=== PATIENT | female | born 1990 | race Caucasian/White ===

== ENCOUNTER 2016-04-28 09:54 | Emergency (ER) | payer MEDICAID ==
[2016-04-28 10:00] VITALS: RESP 18
[2016-04-28] MEDS ORDERED: IBUPROFEN 600 MG TAB PO ONE (10:43)
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
[2016-04-28 11:14] VITALS: BP 113/65; PULSE 75; TEMP 97.7; O2SAT 97
== END 2016-04-28 11:29 | disposition home or self-care (01) ==
DX: S99.922A Unspecified injury of left foot, initial encounter (principal); F17.200 Nicotine dependence, unspecified, uncomplicated; W22.8XXA Striking against or struck by other objects, initial encounter
CPT/HCPCS: L3260

== ENCOUNTER 2016-06-11 17:35 | Emergency (ER) | payer MEDICAID ==
--- NOTE | 2016-06-11 17:59 | EDPHY ---
H & P Stated Complaint: Generalized body aches/flu like sxs Time Seen by Provider: 06/11/16 17:58 - Personal History LMP (Females 10-55): Extended Cycle BCP/Inj Current Tetanus Diphtheria and Acellular Pertussis (TDAP): Yes - Medical/Surgical History Hx Asthma: No Hx Chronic Respiratory Disease: No Hx Diabetes: No Hx Cardiac Disease: No Hx Renal Disease: No Hx Cirrhosis: No Hx Alcoholism: Yes Hx HIV/AIDS: No Hx Splenectomy or Spleen Trauma: No Other PMH: bipolor,ptsd, reactive attachment disorder - not taking any meds now , chronic iv drug use, Hep C - Social History Smoking Status: Current every day smoker Constitutional: Initial Vital Signs Temperature (C) 36.7 C 06/11/16 17:40 Heart Rate 116 H 06/11/16 17:40 Respiratory Rate 20 06/11/16 17:40 Blood Pressure 116/75 06/11/16 17:40 O2 Sat (%) 98 06/11/16 17:40 O2 Delivery Mode Room Air Allergies/Adverse Reactions: Sulfa (Sulfonamide Antibiotics) Allergy (Unknown, Verified 06/11/16 17:39) Home Medications: Medication Instructions Recorded Abilify 04/14/15 Celexa 04/14/15 INTUNIV 01/20/16 AZITHROMYCIN [Z-PACK] 250 mg PO DAILY #1 packet 06/11/16 Hydrocodone/APAP 5/325 [[place] 1 - 2 each PO Q4-6PRN PRN #20 tab 06/11/16 5/325] Medical Decision Making ED Course/Re-evaluation: CHIEF COMPLAINT: HISTORY OF PRESENT ILLNESS: The patient is a 25-year-old female who presents with sore throat, fever, myalgia, cough, and chills this morning. She was diagnosed with pneumonia a few weeks ago and it is unclear if she ever got better. No other complaints at this time. REVIEW OF SYSTEMS: A 10 point review of systems was performed and is negative with the exception of the elements mentioned in the history of present illness. PHYSICAL EXAM: HR, BP, O2 Sat, RR. Temp noted General Appearance: Alert, writhing in bed. Head: Atraumatic without scalp tenderness or obvious injury Eyes: Pupils equal, round, reactive to light and accommodation, EOMI, no trauma , no injection. Ears: Clear bilaterally, no perforation, normal landmarks Nose: Atraumatic, no rhinorrhea, clear. Throat: There is no erythema or exudates, no lesions, normal tonsils, mucus membranes moist. Neck: Supple, 2+ carotid upstroke, nontender, no lymphadenopathy. Respiratory: No retractions, no distress, no wheezes, and no accessory muscle use. Lungs are clear to auscultation bilaterally. Cardiovascular: Regular rate and rhythm, no murmurs, rubs, or gallops. Bilateral carotid, radial, dorsalis pedis, and posterior tibial pulses intact. Good capillary refill all extremities. Gastrointestinal: Abdomen is soft, nontender, non-distended, no masses, no rebound, no guarding, no peritoneal signs. Musculoskeletal: Normal active ROM of all extremities, atraumatic. Neurological: Alert, appropriate, and interactive. The patient has normal DTRs and non-focal cranial nerves, motor, sensory, and cerebellar exam. Skin: No rashes, good turgor, no nodules on palpation. Past medical history: Bipolar disorder, PTSD, reactive attachment disorder, hep c. Past surgical history:Denies. Family history:Non-contributory. Social history:Homeless. DIAGNOSTICS/PROCEDURES/CRITICAL CARE TIME: Study: PA and Lateral Chest X-ray Indication: Cough, fever. Results: I viewed the images myself on the PACS system. The radiologist interpretation is: Chronic or recurrent mild airways disease. No pneumonia. DIFFERENTIAL DIAGNOSIS: The differential diagnosis for the patient's fever included but was not limited to pneumonia, urinary tract infection, viral syndrome, meningitis, and sepsis. MEDICAL DECISION MAKIN-year-old homeless female presents with cough, fever, myalgia, chills since this morning. She was recently diagnosed with pneumonia a few weeks ago. An IV was established and labs ordered. Chest x-ray will be obtained. 30mg IV Toradol for abdominal pain. 1846: X-ray per radiology shows no pneumonia, only recurrent airways disease. I discussed this with the patient at this time. She is comfortable being discharged. - Data Points Laboratory Results: Laboratory Results 06/11/16 18:20 06/11/16 06/11/16 06/11/16 18:20 18:20 18:20 WBC 9.71 10^3/uL H 10^3/uL (3.80-9.50) RBC 5.10 10^6/uL 10^6/uL (4.18-5.33) Hgb 14.4 g/dL g/dL (12.6-16.3) Hct 41.6 % % (38.0-47.0) MCV 81.6 fL fL (81.5-99.8) MCH 28.2 pg pg (27.9-34.1) MCHC 34.6 g/dL g/dL (32.4-36.7) RDW 13.8 % % (11.5-15.2) Plt Count 310 10^3/uL 10^3/uL (150-400) MPV 10.3 fL fL (8.7-11.7) Neut % (Auto) 57.2 % % (39.3-74.2) Lymph % (Auto) 30.8 % % (15.0-45.0) Borden % (Auto) 10.7 % % (4.5-13.0) Eos % (Auto) 0.6 % % (0.6-7.6) Baso % (Auto) 0.5 % % (0.3-1.7) Nucleat RBC Rel Count 0.0 % % (0.0-0.2) Absolute Neuts (auto) 5.55 10^3/uL 10^3/uL (1.70-6.50) Absolute Lymphs (auto) 2.99 10^3/uL 10^3/uL (1.00-3.00) Absolute Monos (auto) 1.04 10^3/uL H 10^3/uL (0.30-0.80) Absolute Eos (auto) 0.06 10^3/uL 10^3/uL (0.03-0.40) Absolute Basos (auto) 0.05 10^3/uL 10^3/uL (0.02-0.10) Absolute Nucleated RBC 0.00 10^3/uL 10^3/uL (0-0.01) Immature Gran % 0.2 % % (0.0-1.1) Immature Gran # 0.02 10^3/uL 10^3/uL (0.00-0.10) PT 13.9 SEC SEC (12.0-15.0) INR 1.08 (0.83-1.16) APTT 29.6 SEC SEC (23.0-38.0) VBG Lactic Acid Sodium Pending Potassium Pending Chloride Pending Carbon Dioxide Pending Anion Gap Pending BUN Pending Creatinine Pending Estimated GFR Pending Glucose Pending Calcium Pending Total Bilirubin Pending 06/11/16 18:20 WBC RBC Hgb Hct MCV MCH MCHC RDW Plt Count MPV Neut % (Auto) Lymph % (Auto) Borden % (Auto) Eos % (Auto) Baso % (Auto) Nucleat RBC Rel Count Absolute Neuts (auto) Absolute Lymphs (auto) Absolute Monos (auto) Absolute Eos (auto) Absolute Basos (auto) Absolute Nucleated RBC Immature Gran % Immature Gran # PT INR APTT VBG Lactic Acid 1.0 mmol/L mmol/L (0.7-2.1) Sodium Potassium Chloride Carbon Dioxide Anion Gap BUN Creatinine Estimated GFR Glucose Calcium Total Bilirubin Medications Given: Discontinued Medications Ketorolac Tromethamine (Toradol) 30 mg IVP EDNOW ONE Stop: 06/11/16 18:04 Last Admin: 06/11/16 18:32 Dose: 30 mg Departure - Departure Disposition: Home, Routine, Self-Care Clinical Impression: Bronchitis Condition: Good Instructions: Acute Bronchitis (ED) Additional Instructions: Drink plenty of fluids and be sure to get rest. Take Azithromycin as prescribed. Follow up with [facility] if symptoms do not improve over the next 3-4 days. Return to the emergency department if you experience any serious worsening of condition. Referrals: [facility],. [Clinic] - As per Instructions Prescriptions: AZITHROMYCIN [Z-PACK] 250 mg PO DAILY #1 packet Hydrocodone/APAP 5/325 [[place] 5/325] 1 - 2 each PO Q4-6PRN PRN #20 tab PRN Reason: Pain, Moderate
[2016-06-11] MEDS ORDERED: KETOROLAC 30 MG/1 ML SDV IVP ONE (18:03)
[2016-06-11 18:30] LABS: % IMMATURE GRANULYOCYTES 0.2 % (0.0-1.1); ABSOLUTE IMMATURE GRANULOCYTES 0.02 10^3/uL (0.00-0.10); ADD DIFF? NO; ADD MORPH? NO; ADD SCAN? NO; ATYPICAL LYMPHOCYTE FLAG 40 (0-99); FRAGMENT RBC FLAG 0 (0-99); HEMATOCRIT 41.6 % (38.0-47.0); HEMOGLOBIN 14.4 g/dL (12.6-16.3); LEFT SHIFT FLG 0 (0-99); LIPEMIA HEMOLYSIS FLAG 90 (0-99); MEAN CELL HEMOGLOBIN 28.2 pg (27.9-34.1); MEAN CELL HEMOGLOBIN CONCENTR. 34.6 g/dL (32.4-36.7); MEAN CELL VOLUME 81.6 fL (81.5-99.8); MEAN PLATELET VOLUME 10.3 fL (8.7-11.7); PLATELET CLUMPS FLAG 0 (0-99); PLATELET COUNT 310 10^3/uL (150-400); RED CELL DISTRIBUTION WIDTH 13.8 % (11.5-15.2)
[2016-06-11] MEDS ORDERED: NS 1,000 ML IV ONE (18:32)
[2016-06-11 18:40] LABS: APTT 29.6 SEC (23.0-38.0); INR 1.08 (0.83-1.16); PROTIME(PATIENT) 13.9 SEC (12.0-15.0)
[2016-06-11 18:50] LABS: ANION GAP 12 mEq/L (8-16); BILIRUBIN,TOTAL 0.6 mg/dL (0.1-1.4); CALCIUM 9.5 mg/dL (8.5-10.4); CARBON DIOXIDE 22 mEq/l (22-31); CHLORIDE 105 mEq/L (97-110); CREATININE 0.6 mg/dL (0.6-1.0); GLOMERULAR FILTRATION RATE > 60; GLUCOSE 100 mg/dL (70-100); SODIUM 139 mEq/L (134-144)
[2016-06-11 19:13] VITALS: BP 98/57; PULSE 91; RESP 18; TEMP 98.4; O2SAT 95
== END 2016-06-11 19:27 | disposition home or self-care (01) ==
DX: J20.9 Acute bronchitis, unspecified (principal); F17.200 Nicotine dependence, unspecified, uncomplicated
CPT/HCPCS: 96374; J1885

== ENCOUNTER 2017-01-18 17:49 | Emergency (ER) | payer MEDICAID ==
[2017-01-18 18:01] VITALS: BP 124/86; RESP 18; TEMP 99.1
--- NOTE | 2017-01-18 18:03 | EDPHY ---
H & P Stated Complaint: ST and fever started last night with congestion and cough Time Seen by Provider: 01/18/17 17:58 HPI/ROS: CHIEF COMPLAINT: A sore throat HISTORY OF PRESENT ILLNESS: The patient is a 26-year-old female who states that she is a carrier for strep throat. She has woke up this morning with a sore throat runny nose and lymphadenopathy. No cough. No shortness of breath. No fever. She states that this is similar to previous strep throat episodes. Her mom is a nurse in told her she does not think it is strep throat. No nausea vomiting. No GI symptoms. No abdominal symptoms. REVIEW OF SYSTEMS: Constitutional: denies: chills, fever, recent illness, recent injury EENTM: See above Respiratory: denies: cough, shortness of breath Cardiac: denies: chest pain, irregular heart rate, lightheadedness, palpitations Gastrointestinal/Abdominal: denies: abdominal pain, diarrhea, nausea, vomiting, blood streaked stools Genitourinary: denies: dysuria, frequency, hematuria, pain Musculoskeletal: denies: joint pain, muscle pain Skin: denies: lesions, rash, jaundice, bruising Neurological: denies: headache, numbness, paresthesia, tingling, dizziness, weakness Hematologic/Lymphatic: denies: blood clots, easy bleeding, easy bruising Immunologic/allergic: denies: HIV/AIDS, transplant EXAM: GENERAL: Well-appearing, well-nourished and in no acute distress. HEAD: Atraumatic, normocephalic. EYES: Pupils equal round and reactive to light, extraocular movements intact, sclera anicteric, conjunctiva are normal. ENT: TMs with fusions, congestive nares, erythematous pharynx with tonsillar swelling, no exudate . Moist mucous membranes. NECK: Normal range of motion, supple without lymphadenopathy or JVD. LUNGS: Breath sounds clear to auscultation bilaterally and equal. No wheezes rales or rhonchi. HEART: Regular rate and rhythm without murmurs, rubs or gallops. ABDOMEN: Soft, nontender, normoactive bowel sounds. No guarding, no rebound. No masses appreciated. BACK: No CVA tenderness, no spinal tenderness, step-offs or deformities EXTREMITIES: Normal range of motion, no pitting or edema. No clubbing or cyanosis. NEUROLOGICAL: Cranial nerves II through XII grossly intact. Normal speech, normal gait. 5/5 strength, normal movement in all extremities, normal sensation PSYCH: Normal mood, normal affect. SKIN: Warm, dry, normal turgor, no visible rashes or lesions. Source: Patient Exam Limitations: No limitations - Medical/Surgical History Hx Asthma: No Hx Chronic Respiratory Disease: No Hx Diabetes: No Hx Cardiac Disease: No Hx Renal Disease: No Hx Cirrhosis: No Hx Alcoholism: Yes Hx HIV/AIDS: No Hx Splenectomy or Spleen Trauma: No Other PMH: bipolor, ptsd, reactive attachment disorder, chronic iv drug use, Hep C - Family History Significant Family History: No pertinent family hx - Social History Smoking Status: Former smoker Alcohol Use: Sober Drug Use: None Constitutional: Initial Vital Signs Temperature (C) 37.3 C 01/18/17 17:58 Heart Rate 114 H 01/18/17 17:58 Respiratory Rate 18 01/18/17 17:58 Blood Pressure 124/86 H 01/18/17 17:58 O2 Sat (%) 94 01/18/17 17:58 O2 Delivery Mode Room Air Allergies/Adverse Reactions: Sulfa (Sulfonamide Antibiotics) Allergy (Unknown, Verified 01/18/17 17:57) Home Medications: Medication Instructions Recorded Celexa 04/14/15 INTUNIV 01/20/16 Medical Decision Making ED Course/Re-evaluation: 6:20 p.m. the patient is doing well. Her rapid strep is negative. We will treat this as a viral pharyngitis and will call her tomorrow for PCR is positive. I recommended antipyretics and hydration. The patient is tolerating p. o.. Her heart rate is improved. Differential Diagnosis: Partial list of the Differential diagnosis considered include but were not limited to; strep throat, viral pharyngitis, upper respiratory tract infection and although unlikely based on the history and physical exam, I also considered pneumonia, sepsis, meningitis. I discussed these differential diagnoses and the plan with the patient as well as the usual and expected course. The patient understands that the diagnosis is provisional and that in medicine we are not always correct and that further workup is often warranted. Usual and customary warnings were given. All of the patient's questions were answered. The patient was instructed to return to the emergency department should the symptoms at all worsen or return, otherwise to followup with the physician as we discussed. - Data Points Laboratory Results: 01/18/17 01/18/17 Unknown 18:00 Group A Strep Screen NEGATIVE (NEGATIVE) Group A Strep DNA Pending Medications Given: Discontinued Medications Ibuprofen (Motrin) 800 mg PO EDNOW ONE Stop: 01/18/17 18:06 Last Admin: 01/18/17 18:07 Dose: 800 mg Departure - Departure Disposition: Home, Routine, Self-Care Clinical Impression: Upper respiratory tract infection Qualifiers: URI type: unspecified URI Qualified Code(s): J06.9 - Acute upper respiratory infection, unspecified Acute pharyngitis Qualifiers: Pharyngitis/tonsillitis etiology: unspecified etiology Qualified Code(s): J02.9 - Acute pharyngitis, unspecified Condition: Fair Instructions: Pharyngitis (ED), Upper Respiratory Infection (ED) Referrals: NONE *PRIMARY CARE P,. [Primary Care Provider] - As per Instructions [facility],. [Clinic] - As per Instructions
[2017-01-18] MEDS ORDERED: IBUPROFEN 800 MG TAB PO ONE (18:05)
[2017-01-18 18:43] VITALS: PULSE 109; O2SAT 97
== END 2017-01-18 18:41 | disposition home or self-care (01) ==
LOC: CED 17:49
DX: J06.9 Acute upper respiratory infection, unspecified (principal); Z87.891 Personal history of nicotine dependence
CPT/HCPCS: 87880-PO

== ENCOUNTER 2017-12-07 20:56 | Emergency (ER) | payer MEDICAID ==
[2017-12-07 21:13] VITALS: BP 117/89
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
== END 2017-12-07 21:58 | disposition home or self-care (01) ==
DX: M25.571 Pain in right ankle and joints of right foot (principal); Y08.02XA Assault by strike by baseball bat, initial encounter; Y93.84 Activity, sleeping; Y99.8 Other external cause status; F17.200 Nicotine dependence, unspecified, uncomplicated
CPT/HCPCS: L4386

== ENCOUNTER 2017-12-26 21:13 | Inpatient (IN) | payer MEDICAID, OTHER ==
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
[2017-12-26 22:29] LABS: PLATELET COUNT 354 10^3/uL (150-400)
[2017-12-27] MEDS ORDERED: DULoxetine 30 MG CAP PO SCH (09:00)
--- NOTE | 2017-12-27 15:37 | ASMTTCLDSP ---
TLC Discharge Disposition Disposition: Answers: Transfer Disposition Notes: Notes: In consultation with [facility] ED physician, Domi Allen MD and on-call psychiatrist, Keith Fernandez MD, both concurred that pt appears to meet 27-65 criteria requiring psychiatric hospitalization as pt appears to be at risk of harm to self due to a mental illness condition. Was patient given the Answers: Yes Inpatient Behavioral Health Prohibited Belongings List while in the ED? For inpatient Keith Fernandez MD admission, the following psychiatrist agreed to accept patient for admission to Behavioral Health ([facility]): Type of Hold: Answers: M1/72-hour Hold Hold initiated by: Answers: Police Date Signed: 12/27/2017 03:32 PM Electronically Signed By:Bayron Frankel
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
--- NOTE | 2017-12-27 16:59 | GCON ---
DATE OF CONSULTATION: 12/27/2017 REASON FOR CONSULTATION: I was asked by Dr. Fernandez to see this patient in regard to her medical pro blems. HISTORY OF PRESENT ILLNESS: This is a 27-year-old female, who presented to the emergency department yesterday with suicidal ideation. She has a history of bipolar as well as PTSD and suicide attempts in the past. She had planned to jump off a bridge. She has had long-term problems with IV drug use. Recently relapsed on methamphetamines 4 days prior to presentation. She has not used for the last 3 days however. She did use these intravenously. She denies any pain at the injection sites. She d oes have a history of hepatitis C which she said cleared on its own and she did not need treatment fo r. Otherwise, she is currently denying any headache, nausea, vomiting, chest pain, shortness of luisa th, rash on her skin and dysuria. PAST MEDICAL/SURGICAL HISTORY: 1. Bipolar disorder. 2. PTSD. 3. Reactive attachment disorder. 4. IV drug use. 5. Hepatitis C exposure. MEDICATIONS: Please see medication reconciliation. ALLERGIES: Sulfa drugs. FAMILY HISTORY: Reviewed and noncontributory. SOCIAL HISTORY: She does smoke, she does not drink and uses IV drugs as above. REVIEW OF SYSTEMS: A 10-point review of systems is conducted and is negative except per HPI. PHYSICAL EXAM: VITAL SIGNS: Blood pressure is 100/65, heart rate 78, respiration rate 15, saturatin g 98% on room air. Temperature 36.4. GENERAL: This is a pleasant female, appears somewhat anxious lying in bed. HEENT showed normocephalic atraumatic. CARDIOVASCULAR: Exam shows a regular rate and r hythm. There are no murmurs, rubs, or gallops. PULMONARY: Shows her to be breathing comfortably. She is clear to auscultation bilaterally. ABDOMEN: Soft, nontender, nondistended. SKIN: Shows no rash. exam shows no Shirley. NEUROLOGIC: Exam shows her to be alert and oriented x3. She is movin g all extremities. PSYCHIATRIC: Shows her to be mildly anxious. LAB DATA: White count is 13.49, basic metabolic panel is normal. Urinalysis is negative. Tox scree n is not negative for amphetamines and marijuana. Alcohol level negative. Data: Reviewed her chart including emergency department note. IMPRESSION AND PLAN: 1. Leukocytosis: Suspect this is stress reaction. Does not represent infection. She has no other signs or symptoms of this. I do not think this needs to be rechecked anytime soon. 2. Recent IV amphetamine use: Currently no signs or symptoms of infection related to this. If anyt polly becomes concerning, please let Hospital Medicine know. 3. Reported exposure to hepatitis C: We do not have a full set of hepatitis labs in our system. He r last HIV was in 2012. Would consider rechecking these either as an inpatient or outpatient. Thank you for involving Hospital Medicine in the care of this patient. We will sign off for now. Pl ease re-consult if there are any additional needs. /[id number]/MODL
[2017-12-27] MEDS ORDERED: LORazepam 0.5 MG TAB PO PRN (20:23)
[2017-12-27] MEDS ORDERED: NICOTINE POLACRILEX 2 MG GUM B PRN (20:23)
[2017-12-27] MEDS ORDERED: MAGNESIUM HYDROXIDE 30 ML UDCUP PO PRN (20:23)
[2017-12-27] MEDS ORDERED: MAG HYDROX/AL HYDROX/SIMETH 30 ML UDCUP PO PRN (20:23)
[2017-12-27] MEDS ORDERED: OLANZapine DISINTEGR 10 MG TAB PO PRN (20:23)
[2017-12-27] MEDS ORDERED: MELATONIN 3 MG TAB PO PRN (20:27)
[2017-12-27] MEDS ORDERED: LURASIDONE HCL 80 MG TAB PO SCH (20:30)
[2017-12-27] MEDS: LURASIDONE HCL 40 MG TAB PO SCH (20:57)
[2017-12-27] MEDS: ACETAMINOPHEN 325 MG TAB PO PRN (21:01)
[2017-12-27] MEDS ORDERED: LURASIDONE HCL 20 MG TAB PO ONE (21:53)
[2017-12-28] MEDS: DULoxetine 30 MG CAP PO SCH (09:32)
--- NOTE | 2017-12-28 13:31 | ASMTBHMTP ---
Master Treatment Plan Master Treatment Plan Answers: Depressed Mood with for: Suicidal Ideation Date: 12/28/2017 Diagnosis on Admission: Bipolar Expected length of stay: 3-5 Days Reason for admission: Notes: Per TLC Evaluation - Pt. is a 27 year old single, female who presented to the [facility] ED with complaints of worsening depression and suicidal ideation since the recent of her father. Pt. has a history of chronic depression and has been on a variety of medications including Latuda and Klonopin. Pt. is an open client with [facility]. Pt's relationship with her father was reported to be very suppottive so pt had stated losing her father had been especially significant. Pt. described a poor relationship with her mother. Pt. had stated her current suicide plan was to jump off a bridge. Pt. stated she has been compliant with taking her medications. Per M1 hold written by sustainability officer: Police responded to a female having suicidal thoughts reported by Dr. Howe at [facility], possibly meth. Nayeli waited for officers outside the tables at a [employer] restaurant. sustainability officer spoke with Nayeli who stated that she was having suicidal thoughts tonight, thinking about jumping in front of a train or off a bridge. Nayeli stated that she just found of that her father and was having guilt about their last conversation Nayeli had said she was suicidal for the past month and that she had just started taking a new medication prescribed for mental health issues. Nayeli had asked to be placed on a mental health hold and taken to a psych hospital. Patient's stated presenting problems: Notes: Dad's three days ago. Patient's goals for treatment: Notes: Not sure Patient's strengths: Notes: Playing with my dog and horseback riding. Identify supports outside of hospital: Notes: Not really Discharge criteria: Notes: Suicidal ideation will resolve and patient will have a plan to safely manage recurrent suicidal ideation. Initial disposition plan/considerations: Notes: Don't have a place to go Master Treatment Plan Required Signatures Psychiatrist signature: Answers: Nik James MD: RN on-shift signature: Answers: RN: Patient signature: Answers: Patient: Date Signed: 12/28/2017 01:30 PM Electronically Signed By:Jackie Mazariegos
[2017-12-28] MEDS ORDERED: PNEUMOCOCCAL 0.5ML VACCINE VIAL IM ONE (14:07)
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
[2017-12-28] MEDS: LURASIDONE HCL 40 MG TAB PO SCH (17:21)
[2017-12-29] MEDS: DULoxetine 30 MG CAP PO SCH (08:21)
[2017-12-29] MEDS: ACETAMINOPHEN 325 MG TAB PO PRN (11:37)
--- NOTE | 2017-12-29 16:10 | SOAPPROG ---
SOAP Progress Note Assessment/Plan: Assessment: 27 yo woman with h/o depression, anxiety, trauma and polysubstance dependence. She has been using IV meth daily and is homeless. Plan: 12/29/17 16:05 1. Patient says she doesn't think her meds are "working" b/c she feels irritable and emotionally labile. MD tried to explain that the most likely explanation for her mood lability is methamphetamine w/d, but patient thinks she needs "new meds." 2. Patient still grieving of her FOC. 3. Patient wants help finding housing and social welfare clerk. CC referred patient to [facility] for Homeless. 4. Patient would like to go to [facility] for substance abuse treatment b/c it' s the only residential program that takes Medicaid, but there is a > 3 mos wait. MD encouraged patient to consider other options for addiction tx and sober living in the more immediate timeframe. 5. Patient is willing to sign in voluntarily. Subjective: Patient told MD she had a "bad" morning b/c she got angry and yelled at staff when they asked her to change her shirt for more appropriate clothes. Staff report patient was yelling and cursing. She later apologized to staff. When MD saw patient she was calm and cooperative. Patient told MD that she thought she "needed new meds." However, MD pointed out that patient was able to take space, remove herself from stressful situation, take deep breaths, and return and apologize for her regretful behavior. This demonstrated to MD that patient was able to cope with her mood lability and return to her baseline calm, pleasant mood without any additional meds. Objective: Vital Signs Temp Pulse Resp BP Pulse Ox 36.8 C 68 16 102/52 L 95 12/29/17 06:00 12/29/17 06:00 12/29/17 06:00 12/29/17 06:00 12/29/17 06:00 MSE: Affect: Calm, euthymic when MD saw her, irritable, labile, angry earlier in AM Mood: "Not good" earlier but "OK" now TP: Linear TC: Denies any SI/HI Insight/Judgment: Poor - Time Spent With Patient Time Spent With Patient: 15" - Pending Discharge Pending Discharge Within 24 Hours: No Pending Discharge Within 48 Hours: No ICD10 Worksheet Patient Problems: Problems Problem Status Onset Bipolar disorder Acute Suicidal ideation Acute
[2017-12-29] MEDS: LURASIDONE HCL 40 MG TAB PO SCH (17:43)
[2017-12-30] MEDS ORDERED: LURASIDONE HCL 40 MG TAB PO SCH (08:21)
[2017-12-30] MEDS: DULoxetine 30 MG CAP PO SCH (08:29)
--- NOTE | 2017-12-30 11:28 | SOAPPROG ---
SOAP Progress Note Assessment/Plan: Assessment: Bipolar I Disorder, Severe. Alcohol use disorder, severe. Cannabis use disorder, severe. No improvement noted. (see subjective/objective note). Patient is not safe to discharge at this time as patient continues to exhibit signs of deangelo, and express deangelo symptoms. Patient requires continued inpatient care because of current deangelo, and requires inpatient level of care to stabilize in order to no longer be gravely disabled due to mental illness. Patient could benefit from continued inpatient hospitalization for crisis stabilization, safety, and medication evaluation. Plan: (1) Psychotropic medications: After reviewing options, risks, and benefits patient agrees to continue current medications with following changes: Zyprexa Zydis 10 mg po QHS and [place] ER 600 mg BID. No other medication changes at this time as more time is needed to determine ongoing tolerability and efficacy. Plan is to continue to observe patient for response and side effects from medications, and ongoing monitoring and evaluation. (2) Review with patient informed consent and recommendations for psychotropic medication treatment listed below (3) Labs: lithium level AM prior to AM dose, A1c, fasting lipid panel (4) Therapy: continue milieu and group therapy (5) Further investigation including gathering information from patients relatives and review of past case records to inform treatment plan. (6) Safety/Wellness plan and follow-up outpatient appointments to be established prior to discharge. Next steps are for patient to meet with clinical care manager to plan a safe discharge plan and establish outpatient services for ongoing treatment. (7) Confer with inpatient treatment team regarding treatment plan. (8) Legal status: M1; to sign in voluntary when M1 expires (9) Consider discharge on Saturday if patient is in stable condition, safe, and has a safe discharge plan. (10) Substance abuse interventions: alcohol and cannabis PSYCHOTROPIC MEDICATION TREATMENT INFORMED CONSENT and RECOMMENDATIONS: Review nature of condition, diagnosis, and prognosis. Review nature and purpose of psychotropic medication treatment. Review type of psychotropic medications being ordered. Review risk and benefits of psychotropic medication treatment. Review probable length of time patient will need to take medications. Review risk and benefits of not undergoing psychotropic medication treatment. Review alternative treatments to psychotropic medications. Review psychotropic medications contraindications, drug-drug interactions, side effects, and importance of reporting any side effects to a psychiatric provider or nurse during inpatient hospitalization, and upon discharge to patients psychiatric outpatient provider, primary care provider, or other health live in caregiver. Review importance of asking a nurse, psychiatric provider, or primary care provider any questions or problems concerning the psychotropic medications. Verify patient understands the information that has been provided, and understands, accepts, and agrees to psychotropic medications. Review patients safety plan and importance of patient to report to staff while hospitalized if patient is ever a danger to self/others, or unable to care for self, and upon discharge, the importance for patient to contact [facility] or [facility], or go to the nearest emergency room, if patient is ever a danger to self/others, or unable to care for self. Recommend that upon discharge patient establish medication management treatment with a psychiatric provider, establishes routine therapy appointments, and follow-up with primary care provider. Verify patient understands and agrees to these recommendations. 12/30/17 11:29 Subjective: Following up with patient for evaluation of psychosis, mood, and safety. Patient reports, "I don't know, but think I need to change my medications. They are not working that well." Patient expresses the following psychiatric symptoms severe depression related to dad passing away 7 days ago. Patient reports taking medications as prescribed, and describes response to medications as poor. Patient does not report undesirable side effects from the medications , and agrees to continue current medications. Patient reports appetite as good , and reports eating all meals. Patient describes getting 1-2 hours of sleep. Patient reports using methamphetamine and cannabis daily prior to admission. Patient agrees to increase Latuda to 80 mg po QD and increase Cymbalta to 60 mg po QD. Objective: Vital Signs Temp Pulse Resp BP Pulse Ox 36.7 C 69 14 102/57 L 98 12/30/17 06:00 12/30/17 06:00 12/30/17 06:00 12/30/17 06:00 12/30/17 06:00 NURSING REPORT: Consulted with nursing for update on patients progress in treatment. Nurses report patient is engaged in treatment, is attending groups, slept 8 hours, expresses the following psychiatric symptoms: severe anxiety, exhibits the following psychiatric symptoms: irritable, anxious; is eating all meals, is agreeable to medications and taking as prescribed with no report of side effects, with no s/s of EPS/akathisia, and denies SI/HI, denies A/V hallucinations, and denies delusions. LINE COOK UPDATE: currently setting up OP services. MSE: The patient presents casually dressed and with good hygiene, and looks stated age. Patient is sitting, posture is upright, and position is relaxed. Patient appears tired, and responds appropriately and reasonably during interview. Patient is engaged, relates well to interviewer, and emotional facial expression is appropriate to situation and changes appropriately with topic. Patient is cooperative, makes comfortable eye contact, and movements are voluntary, deliberate, coordinated, and smooth and even with no inappropriate movements. Patient makes laryngeal sounds effortlessly and shares conversation appropriately; pace of conversation is appropriate, and stream of talking is fluent; articulation is clear and understandable; word choice is effortless and appropriate for education level; completes sentences, occasionally pausing to think; rate and volume are appropriate for interview and setting. Patient reports mood as depressed. Patients affect is flat and constricted, congruent with mood. Patient has linear and logical thinking, with no loose associations, tangential thought, thought blocking, concrete thinking, or any other signs of formal thought disorder. Patient denies suicidal and homicidal ideation, and denies hallucinations and delusions. Patient appears to be a poor historian with poor judgement and poor insight into current condition. Patient has no apparent dysfunction in recent or remote memory noted, and no evidence of gross cognitive dysfunction noted at any point during the interview. SUBSTANCE ABUSE BRIEF INTERVENTION: Brief intervention regarding the risks of methamphetamine and cannabis abuse is provided to patient with goal to reduce the risk of harm that could result from the continued use of methamphetamine and cannabis, with the general aim to investigate the problem, raise awareness of problem, develop a solution with the patient, recommend a specific change or activity, and motivate the patient toward change. Assess substance abuse behavior and give supportive advice about harm reduction, recommend a reduction in hazardous/at-risk consumption patterns, and facilitate referrals for additional specialized treatment with nurse wound care. Intermediate goal is for the patient to quit use and attend OP substance abuse treatment. Intervention focus on intermediate goals to allow for more immediate success in the treatment process to keep the patient motivated. Review following with patient: Cannabis use risks: Short-term use: impaired short-term memory, impaired motor coordination, altered judgement, in high doses paranoia and psychosis. Long-term use addiction, diminished life satisfaction and achievement, symptoms of chronic bronchitis, and increased risk of chronic psychosis disorders if predisposition to such disorders. In withdrawal anger, aggression irritability, anxiety and nervousness, decreased appetite or weight loss, restlessness, and sleep difficulties with strange dreams. Methamphetamine use risks: Short-term: insomnia, irritability, aggressive behavior, hallucinations, delusions, intellectual deficits, anxiety, depression , convulsions, damage to blood vessels in the brain causing strokes, high fevers , collapse of the circulatory system. Long-term: damage to nerve pathways, maybe irreversibly; overstimulation to dopamine impairing dopamine transport and reducing efficiency of dopamine receptors, the reward system becomes worn out, leading to inability to experience pleasure for years. - Time Spent With Patient Time Spent With Patient: 30 minutes, met with patient individually. - Pending Discharge Pending Discharge Within 24 Hours: Yes Pending Discharge Within 48 Hours: No Pending Discharge Date: 12/31/17 Pending Discharge Time: 11:00 ICD10 Worksheet Patient Problems: Problems Problem Status Onset Bipolar disorder Acute Suicidal ideation Acute
[2017-12-30] MEDS ORDERED: IBUPROFEN 200 MG TAB PO PRN (15:54)
--- NOTE | 2017-12-30 16:09 | ASMTBHDC ---
Notes Note: Notes: CC confirmed client's follow up plan (appts): Follow up with: [facility] [address] Next Appt: Jacquelin (Therapist) on SaturdayJanuary 08 (01/08/18) at 9am Next Med Appt: Dr. Kauffman (01/18/18) at 3:45pm At the above location Additional Resources: [address] [place] [address] [id number] [place] [address] Must coordinate entry prior to arriving with [facility] [address] [place] [address] Date Signed: 12/30/2017 04:09 PM Electronically Signed By:Jeff Marin
[2017-12-31 06:52] VITALS: BP 109/53
--- NOTE | 2017-12-31 08:00 | BDS ---
REASON FOR ADMISSION: From the ED note dated 12/26/2017, the patient presented to the ED complaining of worsening suicidal ideation surrounding the recent of her father. The patient reported a plan to hurt herself by jumping off a bridge. The patient presented to the ED requesting help for her suicidal ideation. The patient could not contract for safety. The patient was admitted involuntarily on an M1 hold due to being a danger to herself. The patient was admitted for safety, crisis stabilization, and medication management. ADMITTING DIAGNOSIS: Bipolar I disorder, severe, current episode depression; stimulant use disorder, severe, in a controlled environment; cannabis use disorder, severe, in a controlled environment. ADMISSION PHYSICAL EXAM: The patient was seen for an Internal Medicine consultation on 12/27/2017, for medical clearance for inpatient psychiatric hospitalization and treatment. The patient was medically cleared for inpatient psychiatric hospitalization and treatment. For further details, please see consultation note dated 12/27/2017. ADMISSION LABS: CBC from 12/26/2017, within normal limits except white blood cells were elevated at 13.49. Absolute neutrophils were elevated at 8.87 and absolute lymphocytes were elevated at 3.64. Chemistry from 12/26/2017, within normal limits except creatinine was low at 0.5. Hemoglobin A1c from 12/28/2017 , was 5.6. Liver function from 12/28/2017, within normal limits except total protein was elevated at 8.7. Fasting lipid panel from 12/28/2017, within normal limits except triglycerides were elevated at 221. Cholesterol was elevated at 219, LDL cholesterol calculated was elevated at 120, VLDL cholesterol was elevated at 44, and non-HDL cholesterol was elevated at 164. Urine test from 12/26/2017 was negative. Toxicology screen from 12/26, non-negative for amphetamines, non-negative for THC, negative for all other substances of abuse and negative for ethyl alcohol. MAJOR PROCEDURES OR TESTS: None. HOSPITAL COURSE: The most prominent symptoms and behaviors while the patient was here were severe anxiety and irritability, likely due to the patient's daily use of methamphetamine and cannabis prior to admission, and signs and symptoms of withdrawal from cannabis and methamphetamine use. The patient also reported feeling depressed. Treatment modalities utilized were milieu and group therapy. Latuda 60 mg p.o. daily at 1800 was titrated to 80 mg p.o. daily at 1800, was tolerated with no report of side effects and with good response. Cymbalta 30 mg p.o. daily was titrated to 60 mg p.o. daily, was tolerated with no report of side effects and with good response. Clonidine 0.1 mg p.o. at bedtime was continued, was tolerated with no report of side effects and with good response. The patient has improved considerably with no signs of psychiatric symptoms and no psychiatric symptoms expressed at discharge. The patient reports she has improved since admission and states to be in stable condition, feels safe to discharge and she contracts for safety. Patient's response to treatment was good. There were no adverse or unexpected results of treatment. The patient was safe throughout her stay, active in treatment, engaged in groups, and was appropriate with staff and other patients. The patient met with the treatment team prior to discharge to assess readiness to discharge and review discharge plan. The treatment team consensus is the patient is in stable condition, has a safe discharge plan, and is ready to discharge today. CONDITION ON DISCHARGE: Patient is in stable condition and is no longer a danger to self or others, and is not gravely disabled due to mental illness. Patient is no longer in need of inpatient level of care, and can be safely and effectively treated within the community. The patients level of risk at time of discharge is low. MSE: The patient is casually dressed and with good hygiene , and looks stated age. Patient is sitting, posture is upright, and position is relaxed. Patient appears awake, alert, and responds appropriately and reasonably during interview. Patient is engaged, relates well to interviewer, and emotional facial expression is appropriate to situation and changes appropriately with topic. Patient is cooperative, makes comfortable eye contact , and movements are voluntary, deliberate, coordinated, and smooth and even with no inappropriate movements. Patient makes laryngeal sounds effortlessly and shares conversation appropriately; pace of conversation is appropriate, and stream of talking is fluent; articulation is clear and understandable; word choice is effortless and appropriate for education level; completes sentences, occasionally pausing to think; rate and volume are appropriate for interview and setting. Patient reports mood as euthymic. Patients affect is stable with full variable range, congruent with mood, and appropriate to speech and circumstances. Patient has linear and logical thinking, with no loose associations, tangential thought, thought blocking, concrete thinking, or any other signs of formal thought disorder. Patient denies suicidal and homicidal ideation, and denies hallucinations and delusions. Patient appears to be a reliable historian with sound judgement and good insight into current condition. Patient has no apparent dysfunction in recent or remote memory noted , and no evidence of gross cognitive dysfunction noted at any point during the interview. DISCHARGE DIAGNOSIS: Bipolar I disorder, severe, current episode depression; stimulant use disorder, severe; cannabis use disorder, severe. CURRENT MEDICATIONS: After reviewing options, risks, and benefits, the patient agrees to continue Latuda 80 mg p.o. daily at 1800 with meal and Cymbalta 60 mg p.o. daily. The patient requests prescriptions for the following medications at the time of discharge: Latuda 80 mg and Cymbalta 60 mg. Prescriptions for 30 days are provided. Prescriptions are reviewed with the patient at time of discharge to ensure accuracy and patient understanding. DISPOSITION: The patient left hospital independently and voluntarily with her brother at time of discharge. FOLLOWUP: group rooms coordinator reports the appropriate outpatient follow-up services have been established and outpatient appointments have been scheduled. The patient received written instructions with times and dates of outpatient follow-up appointments. The following follow-up recommendations were provided to the patient at discharge: Continue psychotropic medications as prescribed and attend appointments as scheduled. Report any side effects to a psychiatric outpatient provider, a primary care provider, or other health career development consultant. Address any questions or problems concerning the psychotropic medications with a psychiatric outpatient provider, a primary care provider, or other health career development consultant. Contact [facility] or [facility], or go to the nearest emergency room, if you are ever a danger to yourself/others, or unable to care for yourself. As soon as possible, establish a routine medication management treatment with a psychiatric provider, establish routine therapy appointments, and follow-up with a primary care provider. SUBSTANCE ABUSE BRIEF INTERVENTION: Brief intervention regarding the risks of methamphetamine and cannabis abuse is provided to patient with goal to reduce the risk of harm that could result from the continued use of methamphetamine and cannabis, with the general aim to investigate the problem, raise awareness of problem, develop a solution with the patient, recommend a specific change or activity, and motivate the patient toward change. Assess substance abuse behavior and give supportive advice about harm reduction, recommend a reduction in hazardous/at-risk consumption patterns, and facilitate referrals for additional specialized treatment with long term care pharmacist. Intermediate goal is for the patient to quit use and attend OP substance abuse treatment. Intervention focus on intermediate goals to allow for more immediate success in the treatment process to keep the patient motivated. Review following with patient: Cannabis use risks: Short-term use: impaired short-term memory, impaired motor coordination, altered judgement, in high doses paranoia and psychosis. Long-term use addiction, diminished life satisfaction and achievement, symptoms of chronic bronchitis, and increased risk of chronic psychosis disorders if predisposition to such disorders. In withdrawal anger, aggression irritability, anxiety and nervousness, decreased appetite or weight loss, restlessness, and sleep difficulties with strange dreams. Methamphetamine use risks: Short-term: insomnia, irritability, aggressive behavior, hallucinations, delusions, intellectual deficits, anxiety, depression , convulsions, damage to blood vessels in the brain causing strokes, high fevers , collapse of the circulatory system. Long-term: damage to nerve pathways, maybe irreversibly; overstimulation to dopamine impairing dopamine transport and reducing efficiency of dopamine receptors, the reward system becomes worn out, leading to inability to experience pleasure for years. OUTPATIENT SUBSTANCE ABUSE TREATMENT: Patient referred to outpatient provider and treatment for continued treatment related to substance abuse. LEGAL COURSE: The patient was admitted on an M1 hold. The patient discharged today independently and voluntarily. ATTITUDE AT TIME OF DISCHARGE: The patients attitude was positive at time of discharge, and patient reports looking forward to discharging today. The patient reports she feels safe to discharge, is no longer a danger to herself or others, is in stable condition, and contracts for safety. Patient states she will continue medications as prescribed, and establish medication management treatment with an outpatient provider after discharge. Patient reports she understands the information that has been provided to her, and she understands, accepts, and agrees to psychotropic medications. Patient describes internal protective factors as the coping skills she has learned while hospitalized here, and she plans to continue to practice these coping skills after discharge. LABS AND STUDIES: There were no pending labs or studies at time of discharge. ADVANCED DIRECTIVES: There were no advance directives on file, and patient was a full code during this hospitalization. The following psychotropic medication treatment informed consent and recommendations were provided to the patient at time of discharge. Patient reports she understands, accepts, and agrees to the information that has been provided. PSYCHOTROPIC MEDICATION TREATMENT INFORMED CONSENT and RECOMMENDATIONS: Review nature of condition, diagnosis, and prognosis. Review nature and purpose of psychotropic medication treatment. Review type of psychotropic medications being prescribed. Review risk and benefits of psychotropic medication treatment. Review probable length of time will need to take medications. Review risk and benefits of not undergoing psychotropic medication treatment. Review alternative treatments to psychotropic medications. Review psychotropic medications contraindications, side effects, and importance of reporting any side effects to a psychiatric provider, primary care provider, or other health career development consultant. Review importance of her asking a psychiatric provider or primary care provider any questions or problems concerning the psychotropic medications. Review importance of reporting to a psychiatric provider, primary care provider, or other health career development consultant if she plans to or becomes . Review safety plan and the importance to contact [facility] or [facility] , or go to the nearest emergency room, if ever a danger to yourself/others, or unable to care for yourself. Recommend upon discharge to establish routine medication management treatment with a psychiatric provider, establish routine therapy appointments, and follow-up with a primary care provider. Verify patient understands, accepts, and agrees to the information that has been provided. /[id number]/MODL MTDD
[2017-12-31] MEDS: DULoxetine 30 MG CAP PO SCH (08:18)
== END 2017-12-31 12:45 | disposition home or self-care (01) | DRG 885 ==
LOC: BBEH 12-27 18:50
PROVIDERS: ADMIT Registered Nurse; ATTEND Registered Nurse
DX: F31.5 Bipolar disorder, current episode depressed, severe, with psychotic features (principal); F15.23 Other stimulant dependence with withdrawal; Z23 Encounter for immunization; Z59.0 Homelessness; F12.959 Cannabis use, unspecified with psychotic disorder, unspecified; F43.21 Adjustment disorder with depressed mood; F43.10 Post-traumatic stress disorder, unspecified
CPT/HCPCS: 80305; G0008; G0009; G0480

== ENCOUNTER 2018-01-17 06:10 | Emergency (ER) | payer MEDICAID ==
[2018-01-17 06:14] VITALS: BP 110/66
--- NOTE | 2018-01-17 06:14 | EDPHY ---
H & P Time Seen by Provider: 01/17/18 06:12 HPI/ROS: CHIEF COMPLAINT: Right wrist pain HISTORY OF PRESENT ILLNESS: The patient is a 27-year-old female who states that she fell down the stairs yesterday at her mom's house. She has had pain in her right forearm since that time. She denies other injuries. She has a history of bipolar disorder, PTSD, IV drug abuse. She states that she has not used IV drugs in last month. She did not hit her head. She is ambulatory. She states that she cannot sleep through the night and so she called paramedics this morning. She has been taking ibuprofen without improvement. Severity: Severe Modifying factors: None REVIEW OF SYSTEMS: Constitutional: denies: chills, fever, recent illness, recent injury EENTM: denies: blurred vision, double vision, nose congestion Respiratory: denies: cough, shortness of breath Cardiac: denies: chest pain, irregular heart rate, lightheadedness, palpitations Gastrointestinal/Abdominal: denies: abdominal pain, diarrhea, nausea, vomiting, blood streaked stools Genitourinary: denies: dysuria, frequency, hematuria, pain Musculoskeletal: See HPI Skin: denies: lesions, rash, jaundice, bruising Neurological: denies: headache, numbness, paresthesia, tingling, dizziness, weakness Hematologic/Lymphatic: denies: blood clots, easy bleeding, easy bruising Immunologic/allergic: denies: HIV/AIDS, transplant 10 systems reviewed and negative except as noted EXAM: GENERAL: Well-appearing, well-nourished and in no acute distress. HEAD: Atraumatic, normocephalic. EYES: Pupils equal round and reactive to light, extraocular movements intact, sclera anicteric, conjunctiva are normal. ENT: TMs normal, nares patent, oropharynx clear without exudates. Moist mucous membranes. NECK: Normal range of motion, supple without lymphadenopathy or JVD. LUNGS: Breath sounds clear to auscultation bilaterally and equal. No wheezes rales or rhonchi. HEART: Regular rate and rhythm without murmurs, rubs or gallops. ABDOMEN: Soft, nontender, normoactive bowel sounds. No guarding, no rebound. No masses appreciated. BACK: No CVA tenderness, no spinal tenderness, step-offs or deformities EXTREMITIES: Right wrist with mild swelling at dorsal aspect distal radius. Normal pulses and sensation distally. Normal movement and fingers. No elbow tenderness or swelling or deformity.. NEUROLOGICAL: Cranial nerves II through XII grossly intact. Normal speech, normal gait. 5/5 strength, normal movement in all extremities, normal sensation , normal reflexes PSYCH: Normal mood, normal affect. SKIN: Warm, dry, normal turgor, no visible rashes or lesions. Source: Patient, EMS Exam Limitations: No limitations - Medical/Surgical History Hx Asthma: No Hx Chronic Respiratory Disease: No Hx Diabetes: No Hx Cardiac Disease: No Hx Renal Disease: No Hx Cirrhosis: No Hx Alcoholism: Yes Hx HIV/AIDS: No Hx Splenectomy or Spleen Trauma: No Other PMH: bipolar, ptsd, reactive attachment disorder, chronic iv drug use, Hep C - Family History Significant Family History: No pertinent family hx - Social History Smoking Status: Current every day smoker Alcohol Use: Sober Drug Use: Other Constitutional: Initial Vital Signs Temperature (C) 36.6 C 01/17/18 06:11 Heart Rate 95 01/17/18 06:11 Respiratory Rate 16 01/17/18 06:11 Blood Pressure 110/66 01/17/18 06:11 O2 Sat (%) 100 01/17/18 06:11 O2 Delivery Mode Room Air Allergies/Adverse Reactions: Sulfa (Sulfonamide Antibiotics) Allergy (Unknown, Verified 01/17/18 06:11) Home Medications: Medication Instructions Recorded clonIDINE [Catapres (*)] 0.1 mg PO HS 12/26/17 Acetaminophen [Tylenol 325mg (*)] 650 mg PO Q4HRS PRN tab 12/31/17 DULoxetine [Cymbalta 60 MG (*)] 60 mg PO DAILY 30 Days #30 cap 12/31/17 Ibuprofen [Motrin (*)] 400 mg PO Q6HRS PRN tab 12/31/17 Lurasidone HCl [Latuda] 80 mg PO DAILY 30 Days #30 tab 12/31/17 Melatonin [Melatonin 3 MG (*)] 3 - 6 mg PO HS PRN tab 12/31/17 Nicotine Polacrilex [Nicorette gum 2 mg B Q1HR PRN gum 12/31/17 (*)] Medical Decision Making - Diagnostics Imaging: I viewed and interpreted images myself (Negative for fracture) Procedures: Procedure: Splint placement. A Velcro wrist splint was applied. After application of the splint I returned and re-examined the patient. The splint was adequately immobilizing the joint and distal to the splint the patient's circulation and sensation was intact. ED Course/Re-evaluation: 6:20 a.m. we discussed the patient's x-rays. No visible fractures. She denies snuffbox tenderness. She has some swelling to her arm. I asked her multiple times about injections which she denies. A there is mild abrasion there. She states she finished a course of antibiotics yesterday which she had for wound infection in her other arm. She states that that is doing much better. At this point I placed her in a Velcro splint and she is feeling relieved. She declines further workup or testing at this time. I will have her follow up with Orthopedics. Differential Diagnosis: Partial list of the Differential diagnosis considered include but were not limited to; wrist sprain, fracture, hematoma, abrasion and although unlikely based on the history and physical exam, I also considered infection, abscess, head injury, neck injury. I discussed these differential diagnoses and the plan with the patient as well as the usual and expected course. The patient understands that the diagnosis is provisional and that in medicine we are not always correct and that further workup is often warranted. Usual and customary warnings were given. All of the patient's questions were answered. The patient was instructed to return to the emergency department should the symptoms at all worsen or return, otherwise to followup with the physician as we discussed. Departure - Departure Disposition: Home, Routine, Self-Care Clinical Impression: Sprain of right wrist Qualifiers: Encounter type: initial encounter Qualified Code(s): S63.501A - Unspecified sprain of right wrist, initial encounter Condition: Fair Instructions: Wrist Sprain (ED) Referrals: Patient,NotPresent [Unknown] - As per Instructions Julio Vanegas MD [Medical Doctor] - 5-7 days, if not improved
== END 2018-01-17 06:38 | disposition home or self-care (01) ==
LOC: EDUNIT#
DX: S63.501A Unspecified sprain of right wrist, initial encounter (principal); W10.8XXA Fall (on) (from) other stairs and steps, initial encounter; Y92.019 Unspecified place in single-family (private) house as the place of occurrence of the external cause
CPT/HCPCS: L3984

== ENCOUNTER 2018-01-18 18:24 | Emergency (ER) | payer MEDICAID ==
--- NOTE | 2018-01-18 18:42 | EDPHY ---
H & P Stated Complaint: seen for same earlier this week, pt says fell, inj to R forearm, more pain Time Seen by Provider: 01/18/18 18:38 HPI/ROS: HPI: This is a 27-year-old female who presents with Chief Complaint: seen for same earlier this week, pt says fell, inj to R forearm , more pain Location: Right forearm and hand Quality: Pain Duration: 3 days Signs and Symptoms: No bleeding, no radiation, no numbness, no weakness, no tingling, no incontinence,+ decreased range of motion, + swelling, + pain, no fever Timing: Worsening Severity: 10 out 10 Context: Patient is right-hand dominant, presents for the 2nd time to the emergency room complaining of right forearm and hand pain accompanied by swelling and decreased range of motion. She reports that pain is worsened with any ranges of motion. She fell down the stairs at her mom's house 2 days ago. She was seen in this emergency room yesterday on 01/17/2018 with an x-ray that showed negative fracture and was placed in a Velcro splint. Patient reports that she has continued severe pain that is radiating in nature down into her fingertips. Denies numbness, paresthesias. Patient reports that her last IV drug use was 2 months ago. She adamantly denies any concerns for infection. Patient reports that she called Orthopedics yesterday and left message but has not heard back from them. Modifying Factors: Splint Comment: ROS: A comprehensive 10 system review of systems is otherwise negative aside from elements mentioned in the history of present illness. MEDICAL/SURGICAL/SOCIAL HISTORY: Medical history: bipolar, ptsd, reactive attachment disorder, chronic iv drug use, Hep C, alc synd, adhd Surgical history: Denies Social history: Smoker. CONSTITUTIONAL: Patient is thrashing of about in the ER stretcher, appears older than stated age, awake and alert, moderate distress HEENT: Atraumatic and normocephalic. NECK: supple EXTREMITIES: 2/2 pulses, strength 5/5, right forearm appears to be twice the size of her left forearm. Right WRIST: Extension to 70, flexion to 80, radial deviation to 20 degree, ulnar deviation to 30, no scaphoid tenderness, no tenderness over ulnar styloid, no tenderness over radial styloid, no pain with Nereyda test, no pain with Phalen test, no pain with Tinel test. DIP/ PIP/MCP flexion/extension intact with good light touch sensation. no deformities , no clubbing, no cyanosis or edema. NEUROLOGICAL: no focal neuro deficits. GCS 15. Light touch sensation intact. SKIN: Warm and dry, no erythema. no rash. Good capillary refill. Source: Patient, Old records Exam Limitations: No limitations - Medical/Surgical History Hx Asthma: No Hx Chronic Respiratory Disease: No Hx Diabetes: No Hx Cardiac Disease: No Hx Renal Disease: No Hx Cirrhosis: No Hx Alcoholism: Yes Hx HIV/AIDS: No Hx Splenectomy or Spleen Trauma: No Other PMH: bipolar, ptsd, reactive attachment disorder, chronic iv drug use, Hep C, alc synd, adhd - Social History Smoking Status: Current every day smoker Constitutional: Initial Vital Signs Temperature (C) 36.8 C 01/18/18 18:28 Heart Rate 92 01/18/18 18:28 Respiratory Rate 18 01/18/18 18:28 Blood Pressure 118/73 01/18/18 18:28 O2 Sat (%) 96 01/18/18 18:28 O2 Delivery Mode Room Air Allergies/Adverse Reactions: Sulfa (Sulfonamide Antibiotics) Allergy (Unknown, Verified 01/18/18 18:32) Home Medications: Medication Instructions Recorded clonIDINE [Catapres (*)] 0.1 mg PO HS 12/26/17 DULoxetine [Cymbalta 60 MG (*)] 60 mg PO DAILY 30 Days #30 cap 12/31/17 Ibuprofen [Motrin (*)] 400 mg PO Q6HRS PRN tab 12/31/17 Lurasidone HCl [Latuda] 80 mg PO DAILY 30 Days #30 tab 12/31/17 Melatonin [Melatonin 3 MG (*)] 3 - 6 mg PO HS PRN tab 12/31/17 Nicotine Polacrilex [Nicorette gum 2 mg B Q1HR PRN gum 12/31/17 (*)] Medical Decision Making - Diagnostics Imaging Results: Imaging Impressions Extremity Venous Study 01/18/18 18:42 Impression: There is no sonographic evidence of venous thrombosis in the right arm. Findings were discussed with Katherine Curran PA-C at 20:01, on 01/18/2018. Forearm X-Ray 01/18/18 18:42 Impression: There is no acute osseous abnormality. Hand X-Ray 01/18/18 18:42 Impression: There is no acute fracture identified. ED Course/Re-evaluation: Will repeat right forearm x-ray and add right hand x-ray along with right upper extremity ultrasound to evaluate for deep venous thrombosis. No signs of neurovascular compromise/tenting of skin/compartment syndrome/ extremities and joints examined above and below area of concern and are neurovascularly intact. I personally reviewed the x-rays from yesterday and do not appreciate any fracture. 190: Right hand x-ray and right forearm x-ray reviewed via PACs and show no fracture/soft tissue swelling/dislocation Called by radiologist who advised no right upper extremity DVT. Advised continue supportive care, Velcro splint and orthopedic follow-up This patient was seen under the supervision of my secondary supervising physician. I evaluated care for this patient independently. Discussed this patient with Dr. Allen. Differential Diagnosis: Differential diagnosis includes but is not limited to DeQuervains tendinitis, DVT, hairline fracture. Departure - Departure Disposition: Home, Routine, Self-Care Clinical Impression: Tendinitis of right forearm Condition: Good Instructions: Splint Care (ED), Tendinitis (ED) Additional Instructions: Wear the splint while out of bed until pain free. Limit use of right upper extremity as much as possible until all symptoms have resolved. Take Tylenol 650 mg every 4 hours and/or Ibuprofen 600 mg every 8 hours with food as needed for pain. Apply ice for 30 minutes at a time; 2-3 times per day for the next 1-2 days. Follow up with Orthopedics in 7-10 days if symptoms persist at which time they will evaluate and recommend with you if conservative management versus further imaging is indicated. The x-rays obtained in the emergency department today demonstrate no evidence of an obvious fracture and ultrasound shows no sign of a blood clot. Referrals: Julio Vanegas MD [Medical Doctor] - As per Instructions Stand Alone Forms: Physical Education Excuse, Statement of Treatment
[2018-01-18 20:03] VITALS: BP 109/78
== END 2018-01-18 19:57 | disposition home or self-care (01) ==
DX: M65.831 Other synovitis and tenosynovitis, right forearm (principal); W10.8XXA Fall (on) (from) other stairs and steps, initial encounter; Y92.018 Other place in single-family (private) house as the place of occurrence of the external cause; Y99.8 Other external cause status; F17.210 Nicotine dependence, cigarettes, uncomplicated

== ENCOUNTER 2018-06-12 16:27 | Inpatient (IN) | payer MEDICAID ==
--- NOTE | 2018-06-12 16:43 | EDPHY ---
H & P Stated Complaint: M1 hold - Personal History Current Tetanus/Diphtheria Vaccine: Yes Current Tetanus Diphtheria and Acellular Pertussis (TDAP): Yes - Medical/Surgical History Hx Asthma: No Hx Chronic Respiratory Disease: No Hx Diabetes: No Hx Cardiac Disease: No Hx Renal Disease: No Hx Cirrhosis: No Hx Alcoholism: Yes Hx HIV/AIDS: No Hx Splenectomy or Spleen Trauma: No Other PMH: bipolar, ptsd, reactive attachment disorder, chronic iv drug use, Hep C, alc synd, adhd - Social History Smoking Status: Current every day smoker Time Seen by Provider: 06/12/18 16:27 HPI/ROS: Chief complaint: Mental health hold History of present illness: This is a 27-year-old female brought to the emergency department by EMS from the [facility] on a mental health hold. Patient has history of underlying psychiatric disorders which include PTSD, bipolar and attention deficit hyperactivity disorder. Patient has reportedly been off some or possibly all of her medications for the last week. She reports she has been feeling depressed for the last month. Thoughts of killing herself over the last few weeks. Over the last 3 days she has made multiple gestures of holding a knife to her body stating she want to kill herself. She denies current illness or injury. She denies homicidal ideation. Review of systems: A 10 point review of systems was obtained and other than described above was negative (Cole Bishop) - Physical Exam Exam: General Appearance: Alert, nontoxic. Eyes: Pupils equal and round no pallor or injection. ENT, Mouth: Mucous membranes moist. Respiratory: There are no retractions, lungs are clear to auscultation. Cardiovascular: Regular rate and rhythm. Gastrointestinal: Abdomen is soft and non tender, no masses, bowel sounds normal. Neurological: Alert. Strength and sensation intact and symmetrical. Skin: Warm and dry, no rashes. Musculoskeletal: Neck is supple non tender. Extremities are symmetrical, full range of motion. Psychiatric: Appears distracted and over talkative. (Cole Bishop) Constitutional: Initial Vital Signs Temperature (C) 36.8 C 06/12/18 16:27 Heart Rate 78 06/12/18 16:27 Respiratory Rate 16 06/12/18 16:27 Blood Pressure 114/76 06/12/18 16:27 O2 Sat (%) 95 06/12/18 16:27 O2 Delivery Mode Room Air Allergies/Adverse Reactions: Sulfa (Sulfonamide Antibiotics) Allergy (Unknown, Verified 06/12/18 20:05) "Throat swelled" Fish Containing Products [fish] Allergy (Verified 06/12/18 16:39) Home Medications: Medication Instructions Recorded ARIPiprazole [Abilify 10 mg (*)] 10 mg PO HS 06/12/18 DULoxetine [Cymbalta 30 MG (*)] 30 mg PO HS 06/12/18 DULoxetine [Cymbalta 60 MG (*)] 60 mg PO HS 06/12/18 clonIDINE [Catapres (*)] 0.3 mg PO HS 06/12/18 traZODone [traZODONE 50MG (*)] 50 mg PO HS 06/12/18 Medical Decision Making ED Course/Re-evaluation: Patient seen under the supervision of my secondary supervising physician Dr. Agustin Reina. Patient presents to the emergency department on a mental health hold for suicidal ideation. She is medically evaluated and cleared for psychiatric evaluation. This is pending at time of dictation. Care of patient turned over to Dr. Deedee Juares at end of shift. (Cole Bishop) 6:20 a.m.- Patient stable throughout my shift. She is medically clear and awaiting mental health evaluation. Case will be signed out to Dr. Begum at change of shift. ( Deedee Juares) Patient turned over at change of shift. Patient is being transferred to a psychiatric facility. I filled out the appropriate paperwork. (Lewis Begum) Differential Diagnosis: Included but not limited to anxiety, depression, bipolar, schizophrenia, substance abuse (Cole Bishop) - Data Points Laboratory Results: Laboratory Results 06/12/18 16:45 06/12/18 16:45 Medications Given: Discontinued Medications Aripiprazole (Abilify) 10 mg PO ONCE ONE Stop: 06/12/18 22:31 Last Admin: 06/12/18 22:43 Dose: 10 mg Clonidine (Catapres) 0.3 mg PO EDNOW ONE Stop: 06/12/18 21:00 Last Admin: 06/12/18 22:43 Dose: 0.3 mg Duloxetine HCl (Cymbalta) 90 mg PO ONCE ONE Stop: 06/12/18 22:31 Last Admin: 06/12/18 22:47 Dose: Not Given Nicotine (Nicoderm Cq) 21 mg TD EDNOW ONE Stop: 06/12/18 19:38 Last Admin: 06/12/18 19:58 Dose: 21 mg Trazodone HCl (Trazodone) 50 mg PO EDNOW ONE Stop: 06/12/18 20:57 Last Admin: 06/12/18 22:45 Dose: 50 mg Departure - Departure Disposition: Acute Care Hospital [facility] Clinical Impression: Suicidal ideation Condition: Fair Referrals: NONE *PRIMARY CARE P,. [Primary Care Provider] - As per Instructions
[2018-06-12 17:08] LABS: PLATELET COUNT 371 10^3/uL (150-400)
[2018-06-12] MEDS ORDERED: NICOTINE 21 MG/24 HR PATCH TD ONE (19:37)
[2018-06-12] MEDS ORDERED: traZODone 50 MG TAB PO ONE (20:56)
[2018-06-12] MEDS ORDERED: ARIPiprazole 10 MG TAB PO ONE (22:30)
[2018-06-12] MEDS: DULoxetine 30 MG CAP PO ONE ×2 (22:43→22:47)
[2018-06-13] MEDS ORDERED: MAG HYDROX/AL HYDROX/SIMETH 30 ML UDCUP PO PRN (11:40)
[2018-06-13] MEDS ORDERED: OLANZapine DISINTEGR 10 MG TAB PO PRN (11:40)
[2018-06-13] MEDS ORDERED: MAGNESIUM HYDROXIDE 30 ML UDCUP PO PRN (11:40)
[2018-06-13] MEDS ORDERED: DULoxetine 60 MG CAP PO ONE ×2 (12:03→14:30)
[2018-06-13] MEDS ORDERED: NICOTINE 21 MG/24 HR PATCH TD ONE (12:07)
[2018-06-13] MEDS: IBUPROFEN 600 MG TAB PO PRN ×2 (13:09→20:07)
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
[2018-06-13] MEDS ORDERED: ONDANSETRON DISINTEGRATING 4 MG TAB PO PRN (13:21)
[2018-06-13] MEDS ORDERED: guaiFENesin 200 MG/10 ML UDL PO PRN (13:21)
--- NOTE | 2018-06-13 13:55 | PDMN ---
Medical Necessity Medical necessity: Pt meets IP criteria per JEWEL GRINDER & MCG B-[id number]; est los >2 mn for eval/tx of bipolar disorder w/suicidal ideations; on M1 hold due to being a danger to self; admit for further monitoring, safety, crisis stabilization & med management; per H&P & order 06/13/18
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
[2018-06-13] MEDS ORDERED: DULoxetine 30 MG CAP PO ONE (14:30)
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
--- NOTE | 2018-06-13 15:13 | ASMTCMCOM ---
CM Note CM Note Notes: CC met with pt. to complete MTP. Pt. denies any current legal issues. Pt. reports feeling low for the past month. Pt. asked about increasing her counseling from once a month to twice a month. Pt. stated she "rarely" drinks alcohol, adding she "don't like to drink alcohol". Pt. reports smoking THC every time her anxiety gets so bad that she will end up having a seizure. Pt. reports having seizures "often" adding about "once or twice a week". Pt. stated she will not take Keppra stating her father on it and it increases her SI. Pt. stated she had a seizure last night in the ED but no one witnessed it. Pt. reports being 5 months sober from meth, adding she purchased from THC from someone on the street and believes it had meth in it. Pt. reports she is currently homeless. Pt. presents as alert, slightly elevated, rambling at times, good eye contact, and cooperative. Pt. was admitted today. Pt. sign [facility] VANDANA CC to reach out to [facility] for follow up appointments. Date Signed: 06/13/2018 03:12 PM Electronically Signed By:Jackie Mazariegos
[2018-06-13] MEDS ORDERED: PNEUMOCOCCAL 0.5ML VACCINE VIAL (PNEUMOVAX 23) IM ONE (15:56)
--- NOTE | 2018-06-13 16:04 | ASMTLCPROG ---
Notes Note: Notes: TLC met with pt. for updated MH assessment. Pt continues to express thoughts of suicide if discharged. Consulted with on-call Psychiatrist, Dr. Fernandez and SHADE BANDERAdam. Pt was accepted on 3N inpt. unit. TLC consulted with [facility]. Pt was placed on a M1 hold at the crisis center on 06/11/18. Medicaid authorization obtained. Date Signed: 06/13/2018 04:02 PM Electronically Signed By:Shannan Kennedy
[2018-06-13] MEDS: ARIPiprazole 10 MG TAB PO SCH (20:05)
[2018-06-13] MEDS: traZODone 50 MG TAB PO SCH (20:06)
[2018-06-14] MEDS: DULoxetine 60 MG CAP PO SCH (08:12)
[2018-06-14] MEDS: DULoxetine 30 MG CAP PO SCH (08:12)
[2018-06-14] MEDS ORDERED: NICOTINE 21 MG/24 HR PATCH TD ONE (09:00)
[2018-06-14] MEDS ORDERED: DULoxetine 30 MG CAP PO SCH (09:00)
[2018-06-14] MEDS: ACETAMINOPHEN 325 MG TAB PO PRN ×2 (12:40→21:39)
--- NOTE | 2018-06-14 14:55 | ASMTCMCOM ---
CM Note CM Note Notes: Pt. reports "feeling dizzy" adding she "don't feel good". Pt. reports "been nauseous for the past three days". Pt. reports throwing up today. Pt. stated she slept "off and on", adding she doesn't feel rested. Pt. reports getting enough to eat. Pt. reports no going to groups as to not get anyone else sick. Pt. reports no issues with her current medications. Pt. stated she want to get connected with [facility] and agreed to sign an VANDANA. Pt. reports wanting to stay in the hospital after her hold is up. Pt. denied SI, HI, AVH and paranoia. Pt. presents as alert, bit tired, fair eye contact, somewhat groomed, polite, and cooperative. Staff report pt. sleeping 8 hours and being medication compliant. CC to reach out to [facility] on Saturday for follow up appointments with Dr. Kauffman, pt' manager case management, and pt's new therapist. Date Signed: 06/14/2018 02:55 PM Electronically Signed By:Jackie Mazariegos
--- NOTE | 2018-06-14 17:31 | SOAPPROG ---
SOAP Progress Note Assessment/Plan: Assessment: This is a 27-year-old female brought [facility] emergency department [facility]. Patient has history of underlying psychiatric disorders which include PTSD, bipolar and attention deficit hyperactivity disorder. Patient has reportedly been off some or possibly all of her medications for the last week. She reports she has been feeling depressed for the last month. WEEKEND PLAN: 06/14/18 17:[address] Corado evaluated patient on 06/13/18 for URI and n/v. He recommends Tylenol , Zofran, Maalox, MOM for symptom relief. There were no s/s of pneumonia and no indication for antibiotic tx. Patient has been afebrile throughout her admission. 2. Patient continues to c/o n/v today, took Zofran and Maalox for relief. She denies cough and congestion today. 3. Patient states her main goal is to get a "respite bed" for a couple weeks. 4. [facility] expires tomorrow. Subjective: Patient presents with c/o n/v this AM. Staff have not witness patient vomit. Patient was seen by hospitalist, Dr. Corado, yesterday who diagnosed URI and recommended treatment for symptom relief. Patient says she still feels depressed b/c she doesn't have a long-term place to live. She would like to get services through [facility] b/c she believes they will be able to offer her a "respite bed." When she is not in hospital, patient rarely takes medications ( including refusing to take AED for possible seizure disorder). Instead she uses multiple drugs, including meth, cocaine, and THC. Despite numerous attempts by inpatient providers and outpatient staff at [facility], patient refuses to participate in treatment for her substance use disorder. advised patient that psychotropic meds are not going to provide much benefit to her while she continues to use other, more potent drugs (like meth and cocaine) that cause significant damage to her brain and cause mood disturbances as well as impair her ability to think clearly, problem solve and make good decisions. She says she understands this is true, but has not demonstrated she is prepared to change her behavior in any way or seek services to make the necessary changes to her behavior that would reduce symptoms of mental illness and improve her ability to function. For these reasons, MD believes patient does not derive any therapeutic benefit from being in hospital. She receives doses of meds that she stops taking as soon as she is discharged. It's actually more likely to cause harm by rapidly titrating her psychotropic meds and then stopping and restarting them over the course of multiple psych hospitalizations. MD would not recommend this, however, patient says she is "OK" with the current plan during this admission to restart her meds at her outpatient doses. She gave informed consent to do this to Adam Angelo yesterday. Objective: Vital Signs Temp Pulse Resp BP Pulse Ox 36.2 C 57 L 12 107/59 L 95 06/13/18 12:33 06/13/18 12:33 06/13/18 12:33 06/13/18 12:33 06/13/18 12:33 MSE: Affect: Sad Mood: "Depressed" TP: Linear, most of the time TC: Denies any SI/HI, no delusions Perception: Denies any AH/VH Insight/Judgment: Poor - Time Spent With Patient Time Spent With Patient: 15" - Pending Discharge Pending Discharge Within 24 Hours: No Pending Discharge Within 48 Hours: No ICD10 Worksheet Patient Problems: Problems Problem Status Onset Cannabis use disorder, severe, dependence Acute Nicotine dependence Acute Stimulant use disorder Acute Suicidal ideation Acute Bipolar II disorder, severe, depressed, with anxious distress Chronic Sprain of right wrist Acute
[2018-06-14] MEDS: ARIPiprazole 10 MG TAB PO SCH (21:39)
[2018-06-14] MEDS: traZODone 50 MG TAB PO SCH (22:12)
[2018-06-15 06:36] VITALS: BP 94/46
[2018-06-15] MEDS: DULoxetine 30 MG CAP PO SCH (08:35)
[2018-06-15] MEDS: DULoxetine 60 MG CAP PO SCH (08:35)
[2018-06-15] MEDS: IBUPROFEN 600 MG TAB PO PRN (11:07)
--- NOTE | 2018-06-15 14:39 | ASMTCMCOM ---
CM Note CM Note Notes: Pt. reports feeling "awake". Pt. stated she slept "all day yesterday". Pt. reports feeling good today and without nausea Pt. reports no issues with her current medications. Pt. stated she took trazodone yesterday and slept all day. Pt. reports she didn't attend groups yesterday due to not feeling well. Pt. reports her goal today is to attend groups. Pt. stated she is willing to stay voluntarily Pt. reports no concerns about when she discharges. Pt. stated she would like to go into respite. Pt. denied SI, HI, AVH and paranoia. Pt. presents as alert, calm, friendly, good eye contact, eating breakfast, and cooperative. Staff report pt. sleeping 15 hours last night and being medication compliant. CC to reach out to [facility] on Saturday for follow up appointments and possible respite. Date Signed: 06/15/2018 02:38 PM Electronically Signed By:Jackie Mazariegos
[2018-06-15] MEDS ORDERED: NICOTINE 21 MG/24 HR PATCH TD PRN (15:39)
[2018-06-15] MEDS ORDERED: diphenhydrAMINE 25 MG CAP PO PRN (16:19)
--- NOTE | 2018-06-15 16:19 | SOAPPROG ---
SOAP Progress Note Assessment/Plan: Assessment: This is a 27-year-old female brought to the emergency department by EMS [facility] on a mental health hold. Patient has history of underlying psychiatric disorders which include PTSD, bipolar and attention deficit hyperactivity disorder. Patient has reportedly been off some or possibly all of her medications for the last week. She reports she has been feeling depressed for the last month. WEEKEND PLAN: 06/14/18 17:[address] Corado evaluated patient on 06/13/18 for URI and n/v. He recommends Tylenol , Zofran, Maalox, MOM for symptom relief. There were no s/s of pneumonia and no indication for antibiotic tx. Patient has been afebrile throughout her admission. 2. Patient continues to c/o n/v today, took Zofran and Maalox for relief. She denies cough and congestion today. 3. Patient states her main goal is to get a "respite bed" for a couple weeks. 4. [facility] expires tomorrow. 06/15/18 16:15 1. Patient denies cough and congestion today. She also denies any N/V today. 2. Patient has slight redness and swelling at site of flu vaccine injection. She was given ice pack which reduced swelling. MD will prescribe Benadryl PRN. 3. Patient requests nicotine patch. 4. Patient denies SI/HI, no psychotic sxs. 5. Will change legal status to voluntary. Subjective: Patient c/o swelling and erythema at site of flu vaccine injection from yesterday. MD ordered Benadryl and RN provided patient with ice pack, which she reports helped relieve swelling and discomfort. Patient says she has no thoughts , plans or intent to hurt herself or anyone else. She told CC that she wants a respite bed at [facility]. When patient was told there are no longer any respite beds at [facility], patient was confused. An hour later she asked the same thing. Objective: Vital Signs Temp Pulse Resp BP Pulse Ox 36.6 C 67 16 94/46 L 95 06/15/18 06:00 06/15/18 06:00 06/15/18 06:00 06/15/18 06:00 06/15/18 06:00 MSE: Affect: Brighter Mood: "Better" TP: Goal-directed TC: Denies any SI/HI, no paranoia Insight/Judgment: Poor - Time Spent With Patient Time Spent With Patient: 15" - Pending Discharge Pending Discharge Within 24 Hours: No Pending Discharge Within 48 Hours: No ICD10 Worksheet Patient Problems: Problems Problem Status Onset Cannabis use disorder, severe, dependence Acute Nicotine dependence Acute Stimulant use disorder Acute Suicidal ideation Acute Bipolar II disorder, severe, depressed, with anxious distress Chronic Sprain of right wrist Acute
[2018-06-15] MEDS: ARIPiprazole 10 MG TAB PO SCH (20:11)
[2018-06-15] MEDS: traZODone 50 MG TAB PO SCH (20:12)
[2018-06-16] MEDS: DULoxetine 30 MG CAP PO SCH (08:18)
[2018-06-16] MEDS: DULoxetine 60 MG CAP PO SCH (08:18)
--- NOTE | 2018-06-16 09:06 | ASMTBHDC ---
Notes Note: Notes: CC was able to confirm client's follow up apts. Follow up with: [facility] [address] [place] [id number] Next Apt: SaturdayJune 17 (06/17/18) at 9:15am with Suma Martin (Therapist, same location noted above). Next Apt: SaturdayJune 17 (06/17/18) at 9:45am with Dr. Kauffman at [address] [place] [address], 2nd floor. Date Signed: 06/16/2018 09:05 AM Electronically Signed By:Jeff Marin
--- NOTE | 2018-06-16 10:48 | BDS ---
[f rep st] BEHAVIORAL HEALTH DISCHARGE SUMMARY REASON FOR ADMISSION: From the ED note dated 06/12/2018, the patient was brought to the emergency department by EMS on a mental health hold. The patient reported feeling depressed over the last month with thoughts of killing herself over the last few weeks. Over the last 3 days, the patient had made multiple gestures of holding a knife to her body, stating she wanted to kill herself. The patient was admitted involuntarily and on an M1 hold due to being a danger to herself. The patient was admitted for safety, crisis stabilization , and medication management. ADMITTING DIAGNOSES: 1. Bipolar II disorder, severe, depressed, with anxious distress. 2. Stimulant use disorder. 3. Cannabis use disorder, severe dependence. 4. Nicotine dependence. ADMISSION PHYSICAL EXAM: Patient was seen on 06/13/2018 for H and P consultation for medical clearance for inpatient psychiatric hospitalization and treatment. The patient was medically cleared for psychiatric hospitalization and treatment. For further details, please refer to consultation document dated 06/13/2018. ADMISSION LABS: 1. CBC within normal limits except white blood cells were elevated at 10.22, red blood cells were elevated at 5.53, MCH was low at 27.1, eosinophils were low at 0.5, absolute neutrophils were elevated at 6.86. 2. BMP within normal limits. 3. Beta hCG qualitative test negative. 4. Toxicology screen was non-negative for THC, negative for other substances screened, and negative for ethyl alcohol. 5. Group A strep screen negative. 6. Group A strep DNA negative. HOSPITAL COURSE: The most prominent symptoms and behaviors while the patient was here were reports of moderate anxiety and depression. Treatment modalities utilized were milieu and group therapy. The patient requested her outpatient medications to be continued as follows. Trazodone 50 mg p.o. at bedtime was continued to target mood symptoms, was tolerated with no report of side effects and with good response. Cymbalta 90 mg p.o. at bedtime was continued to target mood symptoms, was tolerated with no report of side effects and with good response. Clonidine 0.3 mg p.o. at bedtime was continued to target anxiety symptoms, was tolerated with no report of side effects and with good response. Abilify 10 mg p.o. at bedtime was continued to target mood symptoms, was tolerated with no report of side effects and with good response. Patient reports she has improved since admission, states to be in stable condition, feels safe to discharge, and she contracts for safety. Patients response to treatment was good. There were no adverse or unexpected results of treatment. The patient was safe throughout stay, active in treatment, engaged in groups, and was appropriate with staff. Patient met with treatment team prior to discharge to assess readiness to discharge and review discharge plan. The treatment team consensus is the patient in stable condition, has a safe discharge plan, and is ready to discharge today. CONDITION AT DISCHARGE: Patient is in stable condition and is no longer a danger to self or others, and is not gravely disabled due to mental illness. Patient is no longer in need of inpatient level of care, and can be safely and effectively treated within the community. The patients level of risk at time of discharge is low. MSE: The patient is casually dressed and with good hygiene , and looks stated age. Patient is sitting, posture is upright, and position is relaxed. Patient appears awake, alert, and responds appropriately and reasonably during interview. Patient is engaged, relates well to interviewer, and emotional facial expression is appropriate to situation and changes appropriately with topic. Patient is cooperative, makes comfortable eye contact , and movements are voluntary, deliberate, coordinated, and smooth and even with no inappropriate movements. Patient makes laryngeal sounds effortlessly and shares conversation appropriately; pace of conversation is appropriate, and stream of talking is fluent; articulation is clear and understandable; word choice is effortless and appropriate for education level; completes sentences, occasionally pausing to think; rate and volume are appropriate for interview and setting. Patient reports mood as euthymic. Patients affect is stable with full variable range, congruent with mood, and appropriate to speech and circumstances. Patient has linear and logical thinking, with no loose associations, tangential thought, thought blocking, concrete thinking, or any other signs of formal thought disorder. Patient denies suicidal and homicidal ideation, and denies hallucinations and delusions. Patient appears to be a reliable historian with sound judgement and good insight into current condition. Patient has no apparent dysfunction in recent or remote memory noted , and no evidence of gross cognitive dysfunction noted at any point during the interview. DISCHARGE DIAGNOSES: 1. Bipolar II disorder, severe, depressed, with anxious distress. 2. Stimulant use disorder. 3. Cannabis use disorder, severe dependence. 4. Nicotine dependence. CURRENT MEDICATIONS: 1. Trazodone 50 mg po QHS 2. Cymbalta 90 mg po QHS 3. Clonidine 0.3 mg po QHS 4. Abilify 10 mg po QHS 5. Nicoderm 21 mg TD QD DISPOSITION: Patient left hospital independently and voluntarily with plans to stay at the homeless [facility] in [place], [place]. FOLLOWUP: marketing traffic coordinator reports the appropriate outpatient follow-up services have been established and outpatient appointments have been scheduled. The patient received written instructions with times and dates of outpatient follow-up appointments. The following follow-up recommendations were provided to the patient at discharge: Continue psychotropic medications as prescribed and attend appointments as scheduled. Report any side effects to a psychiatric outpatient provider, a primary care provider, or other health lawn caretaker. Address any questions or problems concerning the psychotropic medications with a psychiatric outpatient provider, a primary care provider, or other health lawn caretaker. Contact [facility] or [facility], or go to the nearest emergency room, if you are ever a danger to yourself/others, or unable to care for yourself. As soon as possible, establish a routine medication management treatment with a psychiatric provider, establish routine therapy appointments, and follow-up with a primary care provider. SUBSTANCE ABUSE BRIEF INTERVENTION: Brief intervention regarding the risks of methamphetamine abuse is provided to patient with goal to reduce the risk of harm that could result from the continued use of methamphetamine, with the general aim to investigate the problem, raise awareness of problem, develop a solution with the patient, recommend a specific change or activity, and motivate the patient toward change. Assess substance abuse behavior and give supportive advice about harm reduction, recommend a reduction in hazardous/at- risk consumption patterns, and facilitate referrals for additional specialized treatment with technical healthcare consultant. Intermediate goal is for the patient to quit and attend outpatient substance abuse treatment. Intervention focus on intermediate goals to allow for more immediate success in the treatment process to keep the patient motivated. Review following with patient: Methamphetamine use risks: Short-term: insomnia, irritability, aggressive behavior, hallucinations, delusions, intellectual deficits, anxiety, depression, convulsions, damage to blood vessels in the brain causing strokes, high fevers, collapse of the circulatory system. Long-term: damage to nerve pathways, maybe irreversibly; overstimulation to dopamine impairing dopamine transport and reducing efficiency of dopamine receptors, the reward system becomes worn out, leading to inability to experience pleasure for years. OUTPATIENT SUBSTANCE ABUSE TREATMENT: Patient referred to outpatient provider and treatment for continued treatment related to substance abuse. LEGAL COURSE: The patient was admitted involuntarily on an M1 hold for inpatient psychiatric hospitalization and treatment. The patient discharged today independently and voluntarily. ATTITUDE AT TIME OF DISCHARGE: The patients attitude was positive at time of discharge, and patient reports looking forward to discharging today. The patient reports she feels safe to discharge, is no longer a danger to herself or others, is in stable condition, and contracts for safety. Patient states she will continue medications as prescribed, and establish medication management treatment with an outpatient provider after discharge. Patient reports she understands the information that has been provided to her, and she understands, accepts, and agrees to psychotropic medications. Patient describes internal protective factors as the coping skills she has learned while hospitalized here, and she plans to continue to practice these coping skills after discharge. LABS AND RADIOLOGY STUDIES: There were no pending labs or studies at time of discharge. ADVANCE DIRECTIVES: There were no advance directives on file, and patient was full code during this hospitalization. The following psychotropic medication treatment informed consent and recommendations were provided to the patient at time of discharge. Patient reports she understands, accepts, and agrees to the information that has been provided. PSYCHOTROPIC MEDICATION TREATMENT INFORMED CONSENT and RECOMMENDATIONS: Review nature of condition, diagnosis, and prognosis. Review nature and purpose of psychotropic medication treatment. Review type of psychotropic medications being prescribed. Review risk and benefits of psychotropic medication treatment. Review probable length of time will need to take medications. Review risk and benefits of not undergoing psychotropic medication treatment. Review alternative treatments to psychotropic medications. Review psychotropic medications contraindications, side effects, and importance of reporting any side effects to a psychiatric provider, primary care provider, or other health lawn caretaker. Review importance of her asking a psychiatric provider or primary care provider any questions or problems concerning the psychotropic medications. Review importance of reporting to a psychiatric provider, primary care provider, or other health lawn caretaker if she plans to or becomes . Review safety plan and the importance to contact [facility] or [facility] , or go to the nearest emergency room, if ever a danger to yourself/others, or unable to care for yourself. Recommend upon discharge to establish routine medication management treatment with a psychiatric provider, establish routine therapy appointments, and follow-up with a primary care provider. Verify patient understands, accepts, and agrees to the information that has been provided. /[id number]/MODL MTDD
== END 2018-06-16 10:32 | disposition home or self-care (01) | DRG 885 ==
LOC: EDUNIT# → BBEH 06-13 11:15
PROVIDERS: ADMIT Registered Nurse; ATTEND Registered Nurse
DX: F31.5 Bipolar disorder, current episode depressed, severe, with psychotic features (principal); T43.506A Underdosing of unspecified antipsychotics and neuroleptics, initial encounter; F15.90 Other stimulant use, unspecified, uncomplicated; F17.200 Nicotine dependence, unspecified, uncomplicated; F12.90 Cannabis use, unspecified, uncomplicated; J06.9 Acute upper respiratory infection, unspecified; Z59.0 Homelessness; Z23 Encounter for immunization
CPT/HCPCS: 80305; G0008; G0009; G0480

== ENCOUNTER 2018-07-20 18:56 | Emergency (ER) | payer MEDICAID ==
[2018-07-20] MEDS ORDERED: NS 1,000 ML IV ONE ×2 (19:02)
--- NOTE | 2018-07-20 19:04 | EDPHY ---
H & P Time Seen by Provider: 07/20/18 19:02 HPI/ROS: HPI CHIEF COMPLAINT: "I am having Seizures" HISTORY OF PRESENT ILLNESS: Patient is a 27-year-old female she has a history of polysubstance abuse including methamphetamine, recently did methamphetamine on Saturday, she presents emergency room stating that she has been having some seizures. She reports to me that she is awake and alert when she has these and see that she shaking all over. She also complains of numbness and tingling all over. No vomiting denies chest pain or shortness of breath, denies fever, denies headache. Past Medical History: Bipolar disorder, PTSD, anxiety, alcohol syndrome Past Surgical History: Denies recent surgical history Social History: Polysubstance abuse, methamphetamine. Shoots IV methamphetamine Family History: Noncontributory ROS REVIEW OF SYSTEMS: 10 Systems were reviewed and negative with the exception of the elements mentioned in the history of present illness. Exam Constitutional triage nursing summary reviewed, vital signs reviewed, awake/ alert. Eyes normal conjunctivae and sclera, EOMI, PERRLA. HENT normal inspection, atraumatic, moist mucus membranes, no epistaxis, neck supple/ no meningismus, no raccoon eyes. Respiratory clear to auscultation bilaterally, normal breath sounds, no respiratory distress, no wheezing. Cardiovascular rate normal, regular rhythm, no murmur, no edema, distal pulses normal. Gastrointestinal soft, non-tender, no rebound, no guarding, normal bowel sounds, no distension, no pulsatile mass. Genitourinary no CVA tenderness. Musculoskeletal no midline vertebral tenderness, full range of motion, no calf swelling, no tenderness of extremities, no meningismus, good pulses, neurovascularly intact. Skin pink, warm, & dry, no rash, skin atraumatic. Neurologic awake, alert and oriented x 3, AAOx3, moves all 4 extremities equally, motor intact, sensory intact, CN II-XII intact, normal cerebellar, normal vision, normal speech. Psychiatric normal mood/affect. Heme/Lymph/Immune no lymphadenopathy. Differential Diagnosis: Includes but is not limited to in a particular order polysubstance abuse, methamphetamine abuse, seizure, electrolyte disturbance, dehydration, drug intoxication Medical Decision Making: Plan for this patient IV establishment with basic labs , gentle IV fluids, drug screen, re-evaluate Re-evaluation: CT angiogram of the chest shows no evidence of pulmonary embolism does show airway disease is called to me by Dr. Pickens. 2100 patient re-evaluated: She is resting comfortably without any complaints. She is laughing in the room. Denies any chest pain or shortness of breath. Her CT angiogram was obtained for positive D-dimer however she denies any pleuritic pain chest pain or shortness of breath, her CT angiogram did not show any evidence of PE. Drug screen positive for methamphetamine and marijuana. Counseled her on drug use. Labs reassuring. She has not had any further seizure or seizure activity here in the emergency room. Bicarb was noted to be normal We discussed return precautions she would like to be discharged. Return precautions discussed with her. Source: Patient, EMS - Medical/Surgical History Hx Asthma: No Hx Chronic Respiratory Disease: No Hx Diabetes: No Hx Cardiac Disease: No Hx Renal Disease: No Hx Cirrhosis: No Hx Alcoholism: Yes Hx HIV/AIDS: No Hx Splenectomy or Spleen Trauma: No Other PMH: bipolar, ptsd, reactive attachment disorder, chronic iv drug use, Hep C, alc synd, adhd - Social History Smoking Status: Current every day smoker Constitutional: Initial Vital Signs Temperature (C) 36.9 C 07/20/18 19:06 Heart Rate 78 07/20/18 19:06 Respiratory Rate 16 07/20/18 19:06 Blood Pressure 120/90 H 07/20/18 19:06 O2 Sat (%) 96 07/20/18 19:06 O2 Delivery Mode Room Air Allergies/Adverse Reactions: Sulfa (Sulfonamide Antibiotics) Allergy (Unknown, Verified 07/20/18 19:05) "Throat swelled" Fish Containing Products [fish] Allergy (Verified 07/20/18 19:05) Home Medications: Medication Instructions Recorded ARIPiprazole [Abilify 10 mg (*)] 10 mg PO HS 06/12/18 DULoxetine [Cymbalta 30 MG (*)] 30 mg PO HS 06/12/18 DULoxetine [Cymbalta 60 MG (*)] 60 mg PO HS 06/12/18 clonIDINE [Catapres (*)] 0.3 mg PO HS 06/12/18 traZODone [traZODONE 50MG (*)] 50 mg PO HS 06/12/18 Ibuprofen [Motrin (*)] 600 mg PO Q6HRS PRN tab 06/16/18 Nicotine [Nicoderm Cq 21 mg (*)] 21 mg TD DAILY 30 Days #30 patch 06/16/18 Medical Decision Making - Data Points Laboratory Results: Laboratory Results 07/20/18 19:15 07/20/18 19:15 07/20/18 07/20/18 07/20/18 19:35 19:15 19:15 WBC RBC Hgb Hct MCV MCH MCHC RDW Plt Count MPV Neut % (Auto) Lymph % (Auto) Sunflower % (Auto) Eos % (Auto) Baso % (Auto) Nucleat RBC Rel Count Absolute Neuts (auto) Absolute Lymphs (auto) Absolute Monos (auto) Absolute Eos (auto) Absolute Basos (auto) Absolute Nucleated RBC Immature Gran % Immature Gran # D-Dimer 0.54 ug/mLFEU H ug/mLFEU (0.00-0.50) Sodium Potassium Chloride Carbon Dioxide Anion Gap BUN Creatinine Estimated GFR Glucose Calcium Beta HCG, Qual NEGATIVE Urine Color YELLOW Urine Appearance HAZY Urine pH 5.0 (5.0-7.5) Ur Specific Connelly 1.018 (1.002-1.030) Urine Protein 1+ H (NEGATIVE) Urine Ketones NEGATIVE (NEGATIVE) Urine Blood 3+ H (NEGATIVE) Urine Nitrate NEGATIVE (NEGATIVE) Urine Bilirubin NEGATIVE (NEGATIVE) Urine Urobilinogen 2.0 EU H EU (0.2-1.0) Ur Leukocyte Esterase NEGATIVE (NEGATIVE) Urine RBC 1-3 /hpf /hpf (0-3) Urine WBC 10-15 /hpf H /hpf (0-3) Ur Epithelial Cells 2+ /lpf H /lpf (NONE-1+) Urine Bacteria 1+ /hpf H /hpf (NONE SEEN) Urine Mucus 4+ /lpf H /lpf (NONE-1+) Urine Glucose NEGATIVE (NEGATIVE) Urine Opiates Screen NEGATIVE (NEGATIVE) Urine Barbiturates NEGATIVE (NEGATIVE) Ur Phencyclidine Scrn NEGATIVE (NEGATIVE) Ur Amphetamine Screen NON-NEGATIVE H (NEGATIVE) U Benzodiazepines Scrn NEGATIVE (NEGATIVE) Urine Cocaine Screen NEGATIVE (NEGATIVE) U Marijuana (THC) Screen NON-NEGATIVE H (NEGATIVE) 07/20/18 07/20/18 19:15 19:15 WBC 8.11 10^3/uL 10^3/uL (3.80-9.50) RBC 5.29 10^6/uL 10^6/uL (4.18-5.33) Hgb 14.6 g/dL g/dL (12.6-16.3) Hct 44.7 % % (38.0-47.0) MCV 84.5 fL fL (81.5-99.8) MCH 27.6 pg L pg (27.9-34.1) MCHC 32.7 g/dL g/dL (32.4-36.7) RDW 14.2 % % (11.5-15.2) Plt Count 326 10^3/uL 10^3/uL (150-400) MPV 11.0 fL fL (8.7-11.7) Neut % (Auto) 47.0 % % (39.3-74.2) Lymph % (Auto) 43.9 % % (15.0-45.0) Sunflower % (Auto) 6.7 % % (4.5-13.0) Eos % (Auto) 1.5 % % (0.6-7.6) Baso % (Auto) 0.7 % % (0.3-1.7) Nucleat RBC Rel Count 0.0 % % (0.0-0.2) Absolute Neuts (auto) 3.81 10^3/uL 10^3/uL (1.70-6.50) Absolute Lymphs (auto) 3.56 10^3/uL H 10^3/uL (1.00-3.00) Absolute Monos (auto) 0.54 10^3/uL 10^3/uL (0.30-0.80) Absolute Eos (auto) 0.12 10^3/uL 10^3/uL (0.03-0.40) Absolute Basos (auto) 0.06 10^3/uL 10^3/uL (0.02-0.10) Absolute Nucleated RBC 0.00 10^3/uL 10^3/uL (0-0.01) Immature Gran % 0.2 % % (0.0-1.1) Immature Gran # 0.02 10^3/uL 10^3/uL (0.00-0.10) D-Dimer Sodium 142 mEq/L mEq/L (135-145) Potassium 3.5 mEq/L mEq/L (3.5-5.2) Chloride 107 mEq/L mEq/L (97-110) Carbon Dioxide 24 mEq/l mEq/l (22-31) Anion Gap 11 mEq/L mEq/L (6-14) BUN 10 mg/dL mg/dL (7-23) Creatinine 0.6 mg/dL mg/dL (0.6-1.0) Estimated GFR > 60 Glucose 83 mg/dL mg/dL (70-100) Calcium 9.1 mg/dL mg/dL (8.5-10.4) Beta HCG, Qual Urine Color Urine Appearance Urine pH Ur Specific Connelly Urine Protein Urine Ketones Urine Blood Urine Nitrate Urine Bilirubin Urine Urobilinogen Ur Leukocyte Esterase Urine RBC Urine WBC Ur Epithelial Cells Urine Bacteria Urine Mucus Urine Glucose Urine Opiates Screen Urine Barbiturates Ur Phencyclidine Scrn Ur Amphetamine Screen U Benzodiazepines Scrn Urine Cocaine Screen U Marijuana (THC) Screen Medications Given: Discontinued Medications Sodium Chloride (Ns) 1,000 mls @ 0 mls/hr IV EDNOW ONE; Wide Open PRN Reason: Protocol Stop: 07/20/18 19:03 Last Admin: 07/20/18 19:13 Dose: 1,000 mls Sodium Chloride (Ns) 1,000 mls @ 0 mls/hr IV EDNOW ONE; Wide Open PRN Reason: Protocol Stop: 07/20/18 19:03 Last Admin: 07/20/18 19:13 Dose: 1,000 mls Departure - Departure Disposition: Home, Routine, Self-Care Clinical Impression: Dehydration, Methamphetamine abuse Condition: Good Instructions: Methamphetamine Abuse (ED), Dehydration (ED) Additional Instructions: 1. Drink lots of fluids stay well-hydrated and rest 2. Refrain from doing methamphetamine. Referrals: NONE *PRIMARY CARE P,. [Primary Care Provider] - As per Instructions [facility],. [Clinic] - As per Instructions
[2018-07-20 19:24] LABS: PLATELET COUNT 326 10^3/uL (150-400)
[2018-07-20] MEDS ORDERED: IOPAMIDOL (ISOVUE 370) 100 ML BTL IV ONE (20:08)
[2018-07-20 21:30] VITALS: BP 118/71
== END 2018-07-20 21:30 | disposition home or self-care (01) ==
LOC: EDUNIT#
DX: F15.10 Other stimulant abuse, uncomplicated (principal); E86.0 Dehydration
CPT/HCPCS: 80305; Q9967